=== PATIENT | male | born 1950 | race Caucasian/White ===

== ENCOUNTER 2023-02-14 19:45 | Inpatient (IN) ==
[2023-02-15] MEDS ORDERED: Morphine 2 MG/ML SYRINGE IV PRN ×2 (02:09→15:03)
[2023-02-15] MEDS ORDERED: Acetaminophen IV 1 GM/100ML 1,000 MG/100 ML BAG IV PRN (02:10)
[2023-02-15] MEDS ORDERED: Carbidopa/Levodop 25/100 MG TAB PO ONE (03:20)
[2023-02-15 06:02] LABS: ABS Lymphocytes 0.8 10^3/uL (1.0-4.8); ABS Monocytes 0.9 10^3/uL (0.0-1.1); ABS Neutrophils 10.1 10^3/uL (1.5-7.6); ABS Nucleated RBC 0.01 10^3/ul; Eosinophil % 0.1 %; Hematocrit 41.7 % (38-53); Hemoglobin 14.1 g/dL (13.2-16.3); Lymphocyte % 6.6 %; Mean Corpuscular Hemoglobin 29.3 pg (27-33); Mean Corpuscular Hgb Conc 33.8 g/dL (31-36); Mean Corpuscular Volume 86.6 fL (80-97); Platelet Count 198 10^3/uL (150-450); Red Blood Count 4.82 10^6/uL (4.06-5.63); Red Cell Distribution Width 15.7 % (12-17); White Blood Count 11.7 10^3/uL (3.6-10.2)
[2023-02-15 06:07] LABS: Albumin 4.2 g/dL (3.2-5.2); Calcium 9.7 mg/dL (8.6-10.3); Potassium 4.1 mmol/L (3.5-5.0); Total Bilirubin 1.8 mg/dL (0.2-1.0)
[2023-02-15 06:13] LABS: Albumin/Globulin Ratio 1.4 (1-3); Creatinine, Serum 0.76 mg/dL (0.67-1.17); Total Protein 7.2 g/dL (6.4-8.9); eGFR CKD-EPI 96.7 (>60)
[2023-02-15] MEDS: Carbidopa/Levodop 25/100 MG TAB PO SCH ×4 (08:29→21:39)
[2023-02-15] MEDS: Fluticasone NASAL SPRAY 50MCG 16 gm SPRAY BTL INTRANASAL SCH (08:29)
[2023-02-15 09:52] LABS: Urine Appearance Clear; Urine Bilirubin Negative (Negative); Urine Blood Negative (Negative); Urine Color Yellow; Urine Glucose Negative (Negative); Urine Ketones Trace (Negative); Urine Nitrite Negative (Negative); Urine Protein Negative (Negative); Urine Specific Gravity 1.021 (1.002-1.030); Urine Urobilinogen Negative (Negative)
[2023-02-15 09:57] LABS: Urine Bacteria 1+ (Absent); Urine Red Blood Cell 2+(6-10/hpf) (Absent); Urine White Blood Cell 3+(>20/hpf) (Absent)
[2023-02-15] MEDS ORDERED: Midazolam 5 mg/5 ml VIAL 1 mg/ml 5 ml VIAL (5 mg) ONE (13:10)
[2023-02-15] MEDS ORDERED: ceFAZolin 2 GM PREMIX 2 GM/50 ML BAG ONE (13:26)
[2023-02-15] MEDS ORDERED: fentaNYL 100 mcg/2 ml 50 MCG/ML VIAL ONE (13:46)
[2023-02-15] MEDS ORDERED: Propofol 10 MG/ML 20 ML BTL ONE (13:46)
[2023-02-15] MEDS ORDERED: Lidocaine 2% PF 5 ML VIAL ONE (13:46)
[2023-02-15] MEDS ORDERED: Acetaminophen IV 1 GM/100ML 1,000 MG/100 ML BAG IV ONE (14:42)
[2023-02-15] MEDS ORDERED: Dexamethasone IV 4 MG/ML VIAL 1 ml VIAL ONE (14:43)
[2023-02-15] MEDS ORDERED: Ondansetron 4 mg VIAL 2 MG/ML 2 ml VIAL ONE (14:43)
[2023-02-15] MEDS ORDERED: Bupivacaine 0.5% SDV PF 30ML VIAL ONE (14:49)
[2023-02-15] MEDS ORDERED: Senna TAB 8.6 mg TAB PO PRN (15:00)
[2023-02-15] MEDS ORDERED: Ondansetron 4 mg VIAL 2 MG/ML 2 ml VIAL IV PRN ×2 (15:00→15:20)
[2023-02-15] MEDS ORDERED: Polyethylene Glycol 3350 17 GM PACKET PO PRN (15:00)
[2023-02-15] MEDS ORDERED: Magnesium Hydroxide LIQ 30 ML UDC PO PRN (15:00)
[2023-02-15] MEDS ORDERED: fentaNYL 100 mcg/2 ml 50 MCG/ML VIAL IV PRN (15:20)
[2023-02-15] MEDS ORDERED: Naloxone 0.4 mg VIAL 0.4 mg/ml 1 ml VIAL IV PRN (15:20)
[2023-02-15] MEDS ORDERED: HYDROmorphone 1 MG/1 ML SYRINGE IV PRN (15:20)
[2023-02-15 15:58] LABS: Hematocrit 36.2 % (38-53); Hemoglobin 12.2 g/dL (13.2-16.3)
[2023-02-15] MEDS: Latanoprost 0.005% 2.5 ml BTL BOTH EYES SCH (21:44)
[2023-02-15] MEDS: Magnesium Hydroxide LIQ 30 ML UDC PO SCH (21:44)
[2023-02-15] MEDS: ceFAZolin 1 GM ADVAN 1 GM in NS 0.9% 50 ML 50 ML IVPB SCH (22:52)
[2023-02-16 06:16] LABS: Hematocrit 36.3 % (38-53); Hemoglobin 12.3 g/dL (13.2-16.3); Mean Platelet Volume 7.9 fL (7.5-11.2); Platelet Count 167 10^3/uL (150-450)
[2023-02-16] MEDS: ceFAZolin 1 GM ADVAN 1 GM in NS 0.9% 50 ML 50 ML IVPB SCH ×2 (06:18→13:14)
[2023-02-16 06:34] LABS: Calcium 8.9 mg/dL (8.6-10.3)
[2023-02-16 06:40] LABS: Creatinine, Serum 0.63 mg/dL (0.67-1.17); eGFR CKD-EPI 102.3 (>60)
[2023-02-16] MEDS ORDERED: Influenza vaccine *QUAD* *2023-24* 0.5 ML SYRINGE IM ONE (09:00)
[2023-02-16] MEDS: Magnesium Hydroxide LIQ 30 ML UDC PO SCH (09:28)
[2023-02-16] MEDS: Latanoprost 0.005% 2.5 ml BTL BOTH EYES SCH (09:45)
[2023-02-16] MEDS: Carbidopa/Levodop 25/100 MG TAB PO SCH ×2 (09:45→13:14)
[2023-02-16] MEDS: Fluticasone NASAL SPRAY 50MCG 16 gm SPRAY BTL INTRANASAL SCH (09:48)
[2023-02-16 11:31] VITALS: BP 93/56
[2023-02-16] MEDS ORDERED: Enoxaparin 40 MG/0.4 ML SYR SUBCUT SCH (12:00)
== END 2023-02-16 14:05 | DRG 481 ==
LOC: ED 19:45 → EDHOLD 19:45 → SUATTDRO 02-15 00:40 → MEDTELE 02-15 02:21 → SSU 02-15 16:35
PROVIDERS: ADMIT Internal Medicine; ATTEND Internal Medicine

== ENCOUNTER 2023-03-06 13:45 | Inpatient (IN) ==
[2023-03-06 14:37] LABS: ABS Basophils 0.1 10^3/uL (0.0-0.1); ABS Eosinophils 0.1 10^3/uL (0.0-0.5); ABS Lymphocytes 1.3 10^3/uL (1.0-4.8); ABS Monocytes 0.5 10^3/uL (0.0-1.1); ABS Neutrophils 4.5 10^3/uL (1.5-7.6); Eosinophil % 2.2 %; Hematocrit 36.1 % (38-53); Hemoglobin 12.1 g/dL (13.2-16.3); Lymphocyte % 19.6 %; Mean Corpuscular Hemoglobin 29.7 pg (27-33); Mean Corpuscular Hgb Conc 33.6 g/dL (31-36); Mean Corpuscular Volume 88.4 fL (80-97); Platelet Count 240 10^3/uL (150-450); Red Blood Count 4.09 10^6/uL (4.06-5.63); Red Cell Distribution Width 16.1 % (12-17); White Blood Count 6.5 10^3/uL (3.6-10.2)
[2023-03-06 14:45] LABS: INR 1.15 (0.83-1.13)
[2023-03-06 15:13] LABS: Calcium 9.2 mg/dL (8.6-10.3); Creatinine, Serum 0.8 mg/dL (0.67-1.17); Potassium 4.4 mmol/L (3.5-5.0); eGFR CKD-EPI 95.2 (>60)
[2023-03-06] MEDS ORDERED: Polyethylene Glycol 3350 17 GM PACKET PO PRN (18:21)
[2023-03-06] MEDS ORDERED: Morphine 2 MG/ML SYRINGE IV PRN (18:24)
[2023-03-06] MEDS ORDERED: Enoxaparin 40 MG/0.4 ML SYR SUBCUT SCH (18:30)
[2023-03-06] MEDS: Carbidopa/Levodop 25/100 MG TAB PO SCH (20:44)
[2023-03-07 06:38] LABS: Calcium 8.6 mg/dL (8.6-10.3); Creatinine, Serum 0.7 mg/dL (0.67-1.17); Potassium 3.8 mmol/L (3.5-5.0); eGFR CKD-EPI 99.1 (>60)
[2023-03-07 06:48] LABS: ABS Eosinophils 0.1 10^3/uL (0.0-0.5); ABS Lymphocytes 1.2 10^3/uL (1.0-4.8); ABS Monocytes 0.4 10^3/uL (0.0-1.1); ABS Neutrophils 3.9 10^3/uL (1.5-7.6); ABS Nucleated RBC 0.01 10^3/ul; Eosinophil % 2.4 %; Hematocrit 36.3 % (38-53); Hemoglobin 11.9 g/dL (13.2-16.3); Lymphocyte % 21.1 %; Mean Corpuscular Hemoglobin 29.7 pg (27-33); Mean Corpuscular Hgb Conc 32.7 g/dL (31-36); Mean Corpuscular Volume 90.8 fL (80-97); Mean Platelet Volume 7.7 fL (7.5-11.2); Nucleated Red Blood Cells % 0.2 %/100WBC (0.0-0.8); Platelet Count 214 10^3/uL (150-450); Red Blood Count 3.99 10^6/uL (4.06-5.63); Red Cell Distribution Width 16.4 % (12-17); White Blood Count 5.7 10^3/uL (3.6-10.2)
[2023-03-07] MEDS: Carbidopa/Levodop 25/100 MG TAB PO SCH ×4 (11:19→20:05)
[2023-03-07] MEDS ORDERED: fentaNYL 100 mcg/2 ml 50 MCG/ML VIAL ONE ×2 (14:22→17:58)
[2023-03-07] MEDS ORDERED: Rocuronium 50 mg VIAL 10 mg/ml 5 ml VIAL (50 mg) ONE (14:22)
[2023-03-07] MEDS ORDERED: Lidocaine 2% PF 5 ML VIAL ONE (14:22)
[2023-03-07] MEDS ORDERED: Propofol 10 MG/ML 20 ML BTL ONE (14:22)
[2023-03-07] MEDS ORDERED: Midazolam 2 mg/2 ml VIAL 1 mg/ml 2 ml VIAL (2 mg) IV SLOW PU PRN (14:54)
[2023-03-07] MEDS ORDERED: Midazolam 2 mg/2 ml VIAL 1 mg/ml 2 ml VIAL (2 mg) ONE (14:58)
[2023-03-07] MEDS ORDERED: Naloxone 0.4 mg VIAL 0.4 mg/ml 1 ml VIAL IV PRN (15:00)
[2023-03-07] MEDS ORDERED: Ondansetron 4 mg VIAL 2 MG/ML 2 ml VIAL IV PRN ×2 (15:00→16:25)
[2023-03-07] MEDS ORDERED: ceFAZolin 2 GM in NS PREMIX 2 GM/100 ML BAG IVPB ONE (16:17)
[2023-03-07] MEDS ORDERED: Senna TAB 8.6 mg TAB PO PRN (16:25)
[2023-03-07] MEDS ORDERED: Ondansetron 4 mg VIAL 2 MG/ML 2 ml VIAL ONE (16:48)
[2023-03-07] MEDS ORDERED: Dexamethasone IV 4 MG/ML VIAL 1 ml VIAL ONE (16:48)
[2023-03-07] MEDS ORDERED: Acetaminophen IV 1 GM/100ML 1,000 MG/100 ML BAG IV ONE (16:48)
[2023-03-07] MEDS ORDERED: Bupivacaine 0.5% 50 ML MDV VIAL ONE (17:06)
[2023-03-07] MEDS: fentaNYL 100 mcg/2 ml 50 MCG/ML VIAL IV PRN ×2 (18:00→18:19)
[2023-03-07 19:29] LABS: Hematocrit 36.3 % (38-53); Hemoglobin 12.2 g/dL (13.2-16.3)
[2023-03-07] MEDS: Magnesium Hydroxide LIQ 30 ML UDC PO SCH (20:03)
[2023-03-07] MEDS: Lactated Ringers 1000 ml BAG 1,000 ML IV SCH (20:13)
[2023-03-07] MEDS: ceFAZolin 1 GM ADVAN 1 GM in NS 0.9% 50 ML 50 ML IVPB SCH (23:26)
[2023-03-08] MEDS: Lactated Ringers 1000 ml BAG 1,000 ML IV SCH (06:38)
[2023-03-08 07:30] LABS: Hematocrit 33.9 % (38-53); Hemoglobin 11.5 g/dL (13.2-16.3); Mean Platelet Volume 7.7 fL (7.5-11.2); Platelet Count 228 10^3/uL (150-450)
[2023-03-08 07:51] LABS: Calcium 8.5 mg/dL (8.6-10.3); Creatinine, Serum 0.67 mg/dL (0.67-1.17); Potassium 4.3 mmol/L (3.5-5.0); eGFR CKD-EPI 100.4 (>60)
[2023-03-08] MEDS: Magnesium Hydroxide LIQ 30 ML UDC PO SCH (08:47)
[2023-03-08] MEDS: Carbidopa/Levodop 25/100 MG TAB PO SCH ×3 (08:48→17:05)
[2023-03-08] MEDS: ceFAZolin 1 GM ADVAN 1 GM in NS 0.9% 50 ML 50 ML IVPB SCH ×2 (08:48→15:00)
[2023-03-08] MEDS ORDERED: Enoxaparin 40 MG/0.4 ML SYR SUBCUT SCH (12:00)
[2023-03-08 13:59] VITALS: BP 101/64
== END 2023-03-08 17:15 | DRG 482 ==
LOC: EDHOLD 13:45 → ED 13:45 → SSU 16:33 → SUATTDRO 03-07 14:08 → SSU 03-07 17:25
PROVIDERS: ADMIT Student in an Organized Health Care Education/Training Program; ATTEND Student in an Organized Health Care Education/Training Program